=== PATIENT | female | born 1950 | race Caucasian/White ===

== ENCOUNTER 2018-01-08 14:03 | Outpatient (REF) | payer MEDICARE, SELFPAY ==
[2018-01-08 20:27] LABS: Abs Immature Grans 0.02 k/cumm (0.0-0.09); Absolute Basophil Count 0.03 k/cumm (0.0-0.2); Absolute Eosinophil Count 0.21 k/cumm (0.0-0.7); Absolute Monocyte Count 0.93 k/cumm (0.11-0.7); Absolute Neutrophil Count 7.45 k/cumm (1.2-6.7); Basophils % 0.3; Eosinophils % 1.9; HGB 13.8 g/dL (12.0-15.5); Immature Grans % 0.2; Lymphocytes % 20.3; Mean Corp. HGB Concentration 31.4 g/dL (32.0-36.0); Mean Corpuscular Hemoglobin 28.9 pg (27.0-33.0); Mean Corpuscular Volume 92.2 fL (80-95); Mean Platelet Volume 11.2 fL (8.0-11.0); Monocytes % 8.6; Neutrophils % 68.7; Platelet Count 304 x1000/uL (130-400); RBC 4.77 m/cumm (4.00-5.20); RBC Distribution Width 13.7 % (11.7-14.6); White Blood Cell Count 10.84 k/cumm (4.4-10.8)
[2018-01-08 21:22] LABS: ALT 36 U/L (12-78); AST 33 U/L (15-37); Albumin 3.9 g/dL (3.4-5.0); Alkaline Phosphatase 79 U/L (46-116); Anion Gap 8.9 mmol/L (3-11); BUN 25 mg/dL (7-18); Bilirubin, Total 0.4 mg/dL (0.2-1.0); CO2 27.1 mmol/L (21.0-32.0); CREATININE 1.31 mg/dL (0.55-1.02); Calcium 9.4 mg/dL (8.5-10.1); Chloride 104 mmol/L (98-107); Estimated GFR 40.38 (mL/min/1.73m2); Glucose 119 mg/dL (70-100); Potassium 4.6 mmol/L (3.5-5.1); Sodium 140 mmol/L (136-145)
== END 2018-01-08 14:04 ==
LOC: NCHCN 14:03
PROVIDERS: PCP Family Medicine; Visit Provider Family Medicine
DX: E11.9 Type 2 diabetes mellitus without complications; N28.9 Disorder of kidney and ureter, unspecified; E03.9 Hypothyroidism, unspecified; I10 Essential (primary) hypertension; Z01.818 Encounter for other preprocedural examination
CPT/HCPCS: 80053; 85025

== ENCOUNTER 2018-09-30 10:04 | Outpatient (REF) | payer MEDICARE, SELFPAY ==
[2018-09-30 21:55] LABS: Hemoglobin A1C 7.5 % (4.5-6.2)
[2018-09-30 22:10] LABS: Microalb ug/mg Crea 24.3 ug/mg Cr
[2018-09-30 22:17] LABS: ALT 37 U/L (12-78); AST 33 U/L (15-37); Alkaline Phosphatase 97 U/L (46-116); Anion Gap 11.3 mmol/L (3-11); BUN 21 mg/dL (7-18); Bilirubin, Total 0.4 mg/dL (0.2-1.0); CO2 26.7 mmol/L (21.0-32.0); CREATININE 1.49 mg/dL (0.55-1.02); Calcium 9.5 mg/dL (8.5-10.1); Chloride 101 mmol/L (98-107); Cholesterol 164 mg/dL (50-200); Glucose 140 mg/dL (70-100); HDL Cholesterol 46 mg/dL (40-60); LDL CHOLESTEROL 84 mg/dL (<100); Potassium 4.8 mmol/L (3.5-5.1); Sodium 139 mmol/L (136-145); TSH (W/Ref FT4) 3.77 uIU/mL (0.358-3.74); Total Protein 8.4 g/dL (6.4-8.2); Triglyceride 154 mg/dL (30-150)
== END 2018-09-30 10:24 ==
LOC: NCHCN 10:04
PROVIDERS: PCP Family Medicine; Visit Provider Family Medicine
DX: E11.69 Type 2 diabetes mellitus with other specified complication (principal); E03.9 Hypothyroidism, unspecified; Z13.6 Encounter for screening for cardiovascular disorders
CPT/HCPCS: 80053; 80061; 83721; 82043; 82570; 83036; 84439; 84443

== ENCOUNTER 2018-10-14 21:47 | Outpatient (REF) | payer MEDICARE, SELFPAY ==
[2018-10-14 22:17] LABS: Anion Gap 7.9 mmol/L (3-11); BUN 15 mg/dL (7-18); CO2 28.1 mmol/L (21.0-32.0); CREATININE 1.12 mg/dL (0.55-1.02); Calcium 9.1 mg/dL (8.5-10.1); Chloride 103 mmol/L (98-107); Estimated GFR 48.23 (mL/min/1.73m2); Glucose 116 mg/dL (70-100); Potassium 4.7 mmol/L (3.5-5.1); Sodium 139 mmol/L (136-145)
== END 2018-10-14 22:07 ==
LOC: NCHCN 21:47
PROVIDERS: PCP Family Medicine; Visit Provider Family Medicine
DX: I10 Essential (primary) hypertension (principal); E11.9 Type 2 diabetes mellitus without complications
CPT/HCPCS: 80048

== ENCOUNTER 2018-12-28 13:10 | Outpatient (REF) | payer MEDICARE, SELFPAY | END 2018-12-28 13:30 | LOC: NCHCN 13:10 | PROVIDERS: PCP Family Medicine; Visit Provider Family Medicine | DX: R82.90 Unspecified abnormal findings in urine (principal) | CPT/HCPCS: 87077; 87086; 87186 ==

== ENCOUNTER 2019-02-03 14:27 | Outpatient (REF) | payer MEDICARE, SELFPAY ==
[2019-02-03 21:52] LABS: Abs Immature Grans 0.05 k/cumm (0.0-0.09); Absolute Basophil Count 0.03 k/cumm (0.0-0.2); Absolute Eosinophil Count 0.16 k/cumm (0.0-0.7); Absolute Lymphocyte Count 1.99 k/cumm (1.2-3.4); Absolute Monocyte Count 0.76 k/cumm (0.11-0.7); Basophils % 0.4; HCT 42.7 % (36.0-46.0); HGB 13.7 g/dL (12.0-15.5); Immature Grans % 0.6; Lymphocytes % 24.3; Mean Corp. HGB Concentration 32.1 g/dL (32.0-36.0); Mean Corpuscular Hemoglobin 29.2 pg (27.0-33.0); Mean Platelet Volume 10.2 fL (8.0-11.0); Monocytes % 9.3; Neutrophils % 63.4; Platelet Count 353 x1000/uL (130-400); RBC 4.69 m/cumm (4.00-5.20); White Blood Cell Count 8.19 k/cumm (4.4-10.8)
[2019-02-03 22:07] LABS: Anion Gap 10.1 mmol/L (3-11); BUN 33 mg/dL (7-18); CO2 24.9 mmol/L (21.0-32.0); Calcium 9.4 mg/dL (8.5-10.1); Chloride 103 mmol/L (98-107); Estimated GFR 37.28 (mL/min/1.73m2); Glucose 170 mg/dL (70-100); Potassium 4.6 mmol/L (3.5-5.1); Sodium 138 mmol/L (136-145)
[2019-02-03 22:42] LABS: ESR 24 mm/hr (0-30)
== END 2019-02-03 14:47 ==
LOC: NCHCN 14:27
PROVIDERS: PCP Family Medicine; Visit Provider Family Medicine
DX: R05 Cough (principal); Z01.818 Encounter for other preprocedural examination
CPT/HCPCS: 80048; 85652; 86141; 85025

== ENCOUNTER 2019-04-21 22:22 | Outpatient (REF) | payer MEDICARE, SELFPAY ==
[2019-04-21 23:58] LABS: Vitamin B12 297 pg/mL (193-986)
[2019-04-22 04:47] LABS: Vitamin D 25 Total 33.5 ng/ml (30-100)
== END 2019-04-21 22:42 ==
LOC: NCHCN 22:22
PROVIDERS: PCP Family Medicine; Visit Provider Nurse Practitioner Family
DX: E55.9 Vitamin D deficiency, unspecified (principal); F32.9 Major depressive disorder, single episode, unspecified; E66.9 Obesity, unspecified
CPT/HCPCS: 82306; 82607

== ENCOUNTER 2019-06-07 14:46 | Outpatient (REF) | payer MEDICARE, SELFPAY ==
[2019-06-09 13:36] LABS: Hepatitis C Ab w Rflx HCV PCR Negative (Negative)
== END 2019-06-07 15:06 ==
LOC: NCHCN 14:46
PROVIDERS: PCP Family Medicine; Visit Provider Nurse Practitioner Community Health
DX: E03.9 Hypothyroidism, unspecified (principal); Z11.59 Encounter for screening for other viral diseases
CPT/HCPCS: 86803; 84443

== ENCOUNTER 2019-09-06 12:15 | Outpatient (REF) | payer MEDICARE, SELFPAY ==
[2019-09-06 21:09] LABS: Anion Gap 11.7 mmol/L (3-11); BUN 28 mg/dL (7-18); CO2 25.3 mmol/L (21.0-32.0); CREATININE 1.54 mg/dL (0.55-1.02); Calcium 10.3 mg/dL (8.5-10.1); Chloride 100 mmol/L (98-107); Glucose 138 mg/dL (74-106); Sodium 137 mmol/L (136-145)
== END 2019-09-06 12:35 ==
LOC: NCHCN 12:15
PROVIDERS: PCP Family Medicine; Visit Provider Nurse Practitioner Community Health
DX: R10.9 Unspecified abdominal pain (principal)
CPT/HCPCS: 80048; 87077; 87086; 87186

== ENCOUNTER 2019-10-21 20:17 | Outpatient (REF) | payer MEDICARE, SELFPAY ==
[2019-10-21 20:46] LABS: Anion Gap 11.3 mmol/L (3-11); BUN 23 mg/dL (7-18); CO2 26.7 mmol/L (21.0-32.0); CREATININE 1.54 mg/dL (0.55-1.02); Calcium 9.7 mg/dL (8.5-10.1); Chloride 105 mmol/L (98-107); Glucose 153 mg/dL (74-106); Potassium 4.6 mmol/L (3.5-5.1); Sodium 143 mmol/L (136-145)
== END 2019-10-21 20:37 ==
LOC: NCHCN 20:17
PROVIDERS: PCP Family Medicine; Visit Provider Nurse Practitioner Community Health
DX: N18.3 Chronic kidney disease, stage 3 (moderate) (principal); I10 Essential (primary) hypertension
CPT/HCPCS: 80048

== ENCOUNTER 2020-07-12 16:04 | Outpatient (REF) | payer MEDICARE, SELFPAY ==
[2020-07-12 14:02] LABS: Anion Gap 9.5 mmol/L (3-11); BUN 22 mg/dL (7-18); CO2 24.5 mmol/L (21.0-32.0); CREATININE 1.4 mg/dL (0.55-1.02); Chloride 105 mmol/L (98-107); Estimated GFR 37.18 (mL/min/1.73m2); Glucose 244 mg/dL (74-106); Potassium 5.1 mmol/L (3.5-5.1); Sodium 139 mmol/L (136-145); TSH 4.96 uIU/mL (0.36-3.74)
== END 2020-07-12 16:05 | disposition home or self-care (01) ==
LOC: NCHCN 16:04
PROVIDERS: PCP Family Medicine; Visit Provider Nurse Practitioner Community Health
DX: E03.9 Hypothyroidism, unspecified (principal); E11.9 Type 2 diabetes mellitus without complications; N18.30 Chronic kidney disease, stage 3 unspecified
CPT/HCPCS: 80048; 84443

== ENCOUNTER 2020-09-20 09:56 | Outpatient (REF) | payer MEDICARE, SELFPAY ==
[2020-09-20 13:58] LABS: COMMENT (LAB VIEW ONLY) 91.45 mg/dL; Microalb ug/mg Crea 36.4 ug/mg Cr
== END 2020-09-20 09:57 | disposition home or self-care (01) ==
LOC: NCHCN 09:56
PROVIDERS: PCP Family Medicine; Visit Provider Nurse Practitioner Community Health
DX: E11.9 Type 2 diabetes mellitus without complications (principal)
CPT/HCPCS: 82043; 82570

== ENCOUNTER 2020-12-20 09:00 | Outpatient (REF) | payer MEDICARE, SELFPAY ==
[2020-12-20 16:10] LABS: HCT 43.6 % (36.0-46.0); HGB 13.6 g/dL (11.2-15.7); MCH 29.9 pg (27.0-33.0); MCHC 31.2 % (32.0-36.0); MCV 95.8 fL (80-95); MPV 10.5 fL (8.0-11.0); Platelet Count 307 10^3/uL (130-400); RBC 4.55 10^6/uL (3.93-5.22); RDW 13.2 % (11.7-14.6); RDW-SD 47.1 fL; WBC 8.89 10^3/uL (4.4-10.8)
[2020-12-20 16:44] LABS: TSH 3.41 uIU/mL (0.36-3.74)
== END 2020-12-20 09:01 | disposition home or self-care (01) ==
LOC: NCHCN 09:00
PROVIDERS: PCP Family Medicine; Visit Provider Nurse Practitioner Community Health
DX: E03.9 Hypothyroidism, unspecified (principal); Z68.38 Body mass index [BMI] 38.0-38.9, adult
CPT/HCPCS: 85027; 84443

== ENCOUNTER 2021-03-08 16:19 | Outpatient (REF) | payer MEDICARE, SELFPAY ==
[2021-03-08 21:53] LABS: Abs Immature Grans 0.01 10^3/uL (0.0-0.06); Absolute Basophil Count 0.02 10^3/uL (0.0-0.2); Absolute Eosinophil Count 0.12 10^3/uL (0.0-0.7); Absolute Lymphocyte Count 1.63 10^3/uL (1.2-3.4); Absolute Monocyte Count 0.76 10^3/uL (0.1-0.8); Basophils % 0.4; Eosinophils % 2.2; HCT 38.9 % (36.0-46.0); HGB 12.2 g/dL (11.2-15.7); Immature Grans % 0.2; Lymphocytes % 30.5; MCH 29.3 pg (27.0-33.0); MCHC 31.4 % (32.0-36.0); MCV 93.5 fL (80-95); MPV 10.6 fL (8.0-11.0); Monocytes % 14.2; Neutrophils % 52.5; Nucleated RBC 0 %; Platelet Count 216 10^3/uL (130-400); RBC 4.16 10^6/uL (3.93-5.22); RDW 13.1 % (11.7-14.6); RDW-SD 44.9 fL; WBC 5.34 10^3/uL (4.4-10.8)
[2021-03-08 22:07] LABS: ALT 23 U/L (14-59); AST 20 U/L (15-37); Albumin 3.2 g/dL (3.4-5.0); Alkaline Phosphatase 59 U/L (46-116); Anion Gap 8.9 mmol/L (3-11); BUN 20 mg/dL (7-18); Bilirubin, Total 0.4 mg/dL (0.2-1.0); CO2 26.1 mmol/L (21.0-32.0); CREATININE 1.5 mg/dL (0.55-1.02); Calcium 8.6 mg/dL (8.5-10.1); Chloride 105 mmol/L (98-107); Estimated GFR 34.23 (mL/min/1.73m2); Glucose 181 mg/dL (74-106); Potassium 4.8 mmol/L (3.5-5.1); Sodium 140 mmol/L (136-145); Total Protein 6.8 g/dL (6.4-8.2)
[2021-03-10 14:17] LABS: COVID-19 RT-PCR UVMMC Result Positive (Negative)
== END 2021-03-08 16:20 | disposition home or self-care (01) ==
LOC: NCHCN 16:19
PROVIDERS: PCP Family Medicine; Visit Provider Family Medicine
DX: R53.1 Weakness (principal)
CPT/HCPCS: 80053; U0003; U0005; 85025

== ENCOUNTER 2021-06-20 14:15 | Outpatient (REF) | payer MEDICARE, SELFPAY ==
[2021-06-20 21:33] LABS: Anion Gap 11.8 mmol/L (3-11); BUN 20 mg/dL (7-18); CO2 24.2 mmol/L (21.0-32.0); CREATININE 1.5 mg/dL (0.55-1.02); Calcium 9.8 mg/dL (8.5-10.1); Chloride 103 mmol/L (98-107); Estimated GFR 34.23 (mL/min/1.73m2); Glucose 226 mg/dL (74-106); Potassium 4.7 mmol/L (3.5-5.1); Sodium 139 mmol/L (136-145)
[2021-06-20 21:53] LABS: Microalb ug/mg Crea 24.2 ug/mg Cr
== END 2021-06-20 14:16 | disposition home or self-care (01) ==
LOC: NCHCN 14:15
PROVIDERS: PCP Family Medicine; Visit Provider Nurse Practitioner Family
DX: E11.9 Type 2 diabetes mellitus without complications (principal)
CPT/HCPCS: 80048; 82043; 82570

== ENCOUNTER 2021-07-30 17:42 | Outpatient (REF) | payer MEDICARE, SELFPAY ==
[2021-07-30 21:26] LABS: BUN 27 mg/dL (7-18); CREATININE 1.5 mg/dL (0.55-1.02); Calcium 9.5 mg/dL (8.5-10.1); Chloride 102 mmol/L (98-107); Estimated GFR 34.23 (mL/min/1.73m2); Glucose 138 mg/dL (74-106); Potassium 4.9 mmol/L (3.5-5.1); Sodium 139 mmol/L (136-145)
== END 2021-07-30 17:43 | disposition home or self-care (01) ==
LOC: NCHCN 17:42
PROVIDERS: PCP Family Medicine; Visit Provider Nurse Practitioner Family
DX: J18.9 Pneumonia, unspecified organism (principal); N39.0 Urinary tract infection, site not specified
CPT/HCPCS: 80048

== ENCOUNTER 2021-12-18 20:38 | Outpatient (REF) | payer MEDICARE, SELFPAY ==
[2021-12-18 21:23] LABS: BUN 29 mg/dL (7-18); CREATININE 1.5 mg/dL (0.55-1.02); Calcium 9.2 mg/dL (8.5-10.1); Chloride 104 mmol/L (98-107); Estimated GFR 34.13 (mL/min/1.73m2); Glucose 137 mg/dL (74-106); Potassium 4.9 mmol/L (3.5-5.1); Sodium 140 mmol/L (136-145)
== END 2021-12-18 20:39 | disposition home or self-care (01) ==
LOC: NCHCN 20:38
PROVIDERS: PCP Family Medicine; Visit Provider Nurse Practitioner Family
DX: E11.9 Type 2 diabetes mellitus without complications (principal)
CPT/HCPCS: 80048; 85027

== ENCOUNTER 2022-05-29 10:30 | Outpatient (REF) | payer MEDICARE, SELFPAY | END 2022-05-29 10:31 | disposition home or self-care (01) | LOC: NCHCN 10:30 | PROVIDERS: PCP Family Medicine; Visit Provider Nurse Practitioner Family | DX: E03.9 Hypothyroidism, unspecified (principal) | CPT/HCPCS: 84443 ==

== ENCOUNTER 2022-06-18 11:29 | Outpatient (REF) | payer MEDICARE, SELFPAY ==
[2022-06-18 15:02] LABS: Anion Gap 10.3 mmol/L (3-11); BUN 28 mg/dL (7-18); CO2 27.7 mmol/L (21.0-32.0); CREATININE 1.4 mg/dL (0.55-1.02); Calcium 9.8 mg/dL (8.5-10.1); Calculated LDL 12 mg/dL (<100); Chloride 103 mmol/L (98-107); Cholesterol 90 mg/dL (<200); Estimated GFR 39.97 (mL/min/1.73m2); Glucose 121 mg/dL (74-106); HDL Cholesterol 58 mg/dL (40-60); Potassium 4.5 mmol/L (3.5-5.1); Sodium 141 mmol/L (136-145); Triglyceride 101 mg/dL (<150)
[2022-06-18 15:55] LABS: COMMENT (LAB VIEW ONLY) 105.84 mg/dL; Microalb ug/mg Crea 29.7 ug/mg Cr
== END 2022-06-18 11:30 | disposition home or self-care (01) ==
LOC: NCHCN 11:29
PROVIDERS: PCP Family Medicine; Visit Provider Nurse Practitioner Family
DX: E11.9 Type 2 diabetes mellitus without complications (principal); N18.9 Chronic kidney disease, unspecified; R39.89 Other symptoms and signs involving the genitourinary system; R82.998 Other abnormal findings in urine
CPT/HCPCS: 80048; 80061; 82043; 82570; 87086

== ENCOUNTER 2023-06-11 11:00 | Outpatient (REF) | payer MEDICARE, SELFPAY ==
[2023-06-11 15:45] LABS: HGB 13.2 g/dL (11.2-15.7); MCH 28.6 pg (27.0-33.0); MCHC 31.4 % (32.0-36.0); MCV 91 fL (80-95); MPV 10.2 fL (8.0-11.0); Platelet Count 319 10^3/uL (130-400); RBC 4.61 10^6/uL (3.93-5.22); RDW 13.4 % (11.7-14.6); RDW-SD 45.1 fL; WBC 6.54 10^3/uL (4.4-10.8)
[2023-06-11 15:58] LABS: ALT 25 U/L (14-59); AST 23 U/L (15-37); Albumin 3.7 g/dL (3.4-5.0); Alkaline Phosphatase 65 U/L (46-116); Anion Gap 9.1 mmol/L (3-11); BUN 27 mg/dL (7-18); Bilirubin, Total 0.5 mg/dL (0.2-1.0); CO2 25.9 mmol/L (21.0-32.0); CREATININE 1.3 mg/dL (0.55-1.02); Calcium 9.5 mg/dL (8.5-10.1); Calculated LDL 11 mg/dL (<100); Chloride 107 mmol/L (98-107); Cholesterol 92 mg/dL (<200); Estimated GFR 43.42 (mL/min/1.73m2); Glucose 97 mg/dL (74-106); HDL Cholesterol 57 mg/dL (40-60); Potassium 4.5 mmol/L (3.5-5.1); Sodium 142 mmol/L (136-145); TSH (W/Ref FT4) 5.08 uIU/mL (0.36-3.74); Total Protein 7.7 g/dL (6.4-8.2); Triglyceride 121 mg/dL (<150)
[2023-06-11 16:24] LABS: Hemoglobin A1C 6.1 % (<5.7)
== END 2023-06-11 11:01 | disposition home or self-care (01) ==
LOC: NCHCN 11:00
PROVIDERS: PCP Family Medicine; Visit Provider Nurse Practitioner Family
DX: E03.9 Hypothyroidism, unspecified (principal); E78.00 Pure hypercholesterolemia, unspecified; E11.9 Type 2 diabetes mellitus without complications; N18.30 Chronic kidney disease, stage 3 unspecified
CPT/HCPCS: 80053; 80061; 85027; 83036; 84439; 84443

== ENCOUNTER 2023-06-18 15:45 | Outpatient (REF) | payer MEDICARE, SELFPAY ==
[2023-06-18 21:53] LABS: COMMENT (LAB VIEW ONLY) 96.89 mg/dL; Microalb ug/mg Crea 16.4 ug/mg Cr
== END 2023-06-18 15:46 | disposition home or self-care (01) ==
LOC: NCHCN 15:45
PROVIDERS: Visit Provider Nurse Practitioner Family
DX: E11.9 Type 2 diabetes mellitus without complications (principal)
CPT/HCPCS: 82043; 82570

== ENCOUNTER 2024-08-10 13:59 | Outpatient (REF) | payer MEDICARE, SELFPAY ==
[2024-08-10 22:12] LABS: HCT 43.6 % (36.0-46.0); HGB 13.9 g/dL (11.2-15.7); MCHC 31.9 % (32.0-36.0); MCV 94 fL (80-95); MPV 10.1 fL (8.0-11.0); Platelet Count 272 10^3/uL (130-400); RBC 4.63 10^6/uL (3.93-5.22); RDW 13.2 % (11.7-14.6); RDW-SD 45.4 fL; WBC 8.46 10^3/uL (4.4-10.8)
[2024-08-10 23:03] LABS: ALT 26 U/L (14-59); AST 20 U/L (15-37); Albumin 3.8 g/dL (3.4-5.0); Alkaline Phosphatase 71 U/L (46-116); Anion Gap 11.2 mmol/L (3-11); BUN 25 mg/dL (7-18); Bilirubin, Total 0.5 mg/dL (0.2-1.0); CO2 25.8 mmol/L (21.0-32.0); CREATININE 1.4 mg/dL (0.55-1.02); Calcium 9.9 mg/dL (8.5-10.1); Calculated LDL 24 mg/dL (<100); Chloride 107 mmol/L (98-107); Cholesterol 111 mg/dL (<200); Estimated GFR 39.48 (mL/min/1.73m2); Glucose 115 mg/dL (74-106); HDL Cholesterol 61 mg/dL (>or=50); Potassium 3.9 mmol/L (3.5-5.1); Sodium 144 mmol/L (136-145); TSH 7.56 uIU/mL (0.36-3.74); Total Protein 7.2 g/dL (6.4-8.2); Triglyceride 134 mg/dL (<150)
[2024-08-10 23:07] LABS: Vitamin B12 > 2000 pg/mL (193-986)
== END 2024-08-10 14:00 | disposition home or self-care (01) ==
LOC: NCHCN 13:59
PROVIDERS: PCP Nurse Practitioner Family; Visit Provider Nurse Practitioner Family
DX: E11.9 Type 2 diabetes mellitus without complications (principal); E03.9 Hypothyroidism, unspecified; Z51.81 Encounter for therapeutic drug level monitoring; E78.00 Pure hypercholesterolemia, unspecified
CPT/HCPCS: 80053; 80061; 85027; 82607; 84443

== ENCOUNTER 2024-12-28 17:43 | Outpatient (REF) | payer MEDICARE, SELFPAY ==
[2024-12-28 15:39] LABS: TSH 3.22 uIU/mL (0.36-3.74)
== END 2024-12-28 17:44 | disposition home or self-care (01) ==
LOC: NCHCN 17:43
PROVIDERS: PCP Nurse Practitioner Family; Visit Provider Nurse Practitioner Family
DX: E03.9 Hypothyroidism, unspecified (principal)
CPT/HCPCS: 84443